=== PATIENT | male | born 1960 | race Caucasian/White ===

== ENCOUNTER 2024-06-18 15:35 | Emergency (ER) | payer BC ==
[2024-06-18] MEDS: Proparacaine 0.5% Ophth Soln 15 ML Bottle EYELF ONE (18:11)
[2024-06-18] MEDS: Fluorescein 1 MG Ophth Strip EYELF ONE (18:11)
[2024-06-18] MEDS: Erythromycin Base 0.5% Ophth Oint 3.5 GM Tube EYELF ONE (19:11)
[2024-06-18] MEDS: Ciprofloxacin 0.3% Ophth Soln 5 ML Bottle EYELF ONE (19:26)
== END 2024-06-18 19:38 | disposition home or self-care (01) ==
LOC: DL.ED 15:35
DX: S05.02XA Injury of conjunctiva and corneal abrasion without foreign body, left eye, initial encounter (principal); H57.8A2 Foreign body sensation, left eye; I25.10 Atherosclerotic heart disease of native coronary artery without angina pectoris; I25.2 Old myocardial infarction; E78.00 Pure hypercholesterolemia, unspecified; Z95.5 Presence of coronary angioplasty implant and graft; Z79.899 Other long term (current) drug therapy; Z79.82 Long term (current) use of aspirin; Z88.8 Allergy status to other drugs, medicaments and biological substances; X58.XXXA Exposure to other specified factors, initial encounter
CPT/HCPCS: 99283; A9270-GY; J3490